=== PATIENT | female | born 1980 | race Caucasian/White ===

== ENCOUNTER 2016-08-31 06:25 | Day surgery (SDC) | payer BC, OTHER ==
[~2016-08-31 06:25] MED LIST: Lactated Ringers 1,000 ML IV SCH; Lidocaine 1%/Sod Bicarbonate in NS 8.4% 1 ML Syringe PRN; Sodium Chloride 0.9% 10 ML Syringe FLUSH PRN
[2016-08-31] MEDS ORDERED: Bupivacaine 0.5% 30 ML SDV ONE (06:34)
[2016-08-31] MEDS: Sodium Chloride 0.9% 1,000 ML IV SCH ×2 (06:45→08:31)
[2016-08-31] MEDS ORDERED: Propofol 200 MG/20 ML SDV ONE ×2 (06:55→06:56)
[2016-08-31] MEDS ORDERED: fentaNYL 250 MCG/5 ML SDV ONE (06:56)
[2016-08-31] MEDS ORDERED: Midazolam 1 MG/ML 2 ML SDV ONE (06:56)
--- NOTE | 2016-08-31 06:58 | PCM.PREANE ---
Preanesthetic Assessment - Procedure Proposed Procedure: D&C, hysteroscopy, diagnostic laparoscopy - Anesthesia/Transfusion/Family Hx Anesthesia History: Prior Anesthesia Without Reaction Family History of Anesthesia Reaction: No Transfusion History: No Prior Transfusion(s) Type of Transfusion Reactions: Reports: Unknown Intubation History: Unknown - Review of Systems General: No Symptoms Pulmonary: No Symptoms Cardiovascular: No Symptoms Gastrointestinal: No symptoms Neurological: No Symptoms Other: Reports: Diabetes (GS 156 at 0644), Anxiety (not medicated ) - Physical Assessment NPO Status Date: 08/30/16 NPO Status Time: 21:00 Pulse: 94 O2 Sat by Pulse Oximetry: 95 Respiratory Rate: 16 Blood Pressure: 104/71 Temperature: 36.8 C Height: 1.57 m Weight: 62.142 kg ASA Class: 2 Mental Status: Alert & Oriented x3 Airway Class: Mallampati = 1 Dentition: Reports: Normal Dentition Thyro-Mental Finger Breadths: 3 ROM/Head Extension: Full Lungs: Clear to auscultation, Normal respiratory effort Cardiovascular: Regular Rate, Regular Rhythm - Lab Values: Laboratory Last Values WBC 10.03 K/mm3 (3.98-10.04) 08/30/16 17:36 RBC 4.60 M/mm3 (3.98-5.22) 08/30/16 17:36 Hgb 14.2 gm/L (11.2-15.7) 08/30/16 17:36 Hct 41.4 % (34.1-44.9) 08/30/16 17:36 MCV 90.0 fl (79.4-94.8) 08/30/16 17:36 MCH 30.9 pg (25.6-32.2) 08/30/16 17:36 MCHC 34.3 g/dl (32.2-35.5) 08/30/16 17:36 RDW Std Deviation 41.2 fL (36.4-46.3) 08/30/16 17:36 Plt Count 225 K/mm3 (182-369) 08/30/16 17:36 MPV 11.5 fl (9.4-12.3) 08/30/16 17:36 Neut % (Auto) 39.2 % (34.0-71.1) 08/30/16 17:36 Lymph % (Auto) 51.6 % (19.3-51.7) 08/30/16 17:36 [place] % (Auto) 7.9 % (4.7-12.5) 08/30/16 17:36 Eos % (Auto) 0.8 (0.7-5.8) 08/30/16 17:36 Baso % (Auto) 0.2 % (0.1-1.2) 08/30/16 17:36 Neut # (Auto) 3.93 K/mm3 (1.56-6.13) 08/30/16 17:36 Lymph # (Auto) 5.18 K/mm3 (1.18-3.74) H 08/30/16 17:36 [place] # (Auto) 0.79 K/mm3 (0.24-0.36) H 08/30/16 17:36 Eos # (Auto) 0.08 K/mm3 (0.04-0.36) 08/30/16 17:36 Baso # (Auto) 0.02 K/mm3 (0.01-0.08) 08/30/16 17:36 Manual Slide Review Abnormal smear 08/30/16 17:36 POC Glucose 156 mg/dL (70-105) H 08/31/16 06:44 HCG, Quant < 1.0 mIU/mL 08/30/16 17:36 - Allergies Allergies/Adverse Reactions: Allergies Allergy/AdvReac Type Severity Reaction Status Date / Time cefdinir [From Omnicef] AdvReac Diarrhea Verified 08/30/16 16:23 naproxen AdvReac Diarrhea/blood Verified 08/30/16 16:23 in stool sulfamethoxazole AdvReac Stomach Verified 08/30/16 16:23 [From Bactrim] Ache trimethoprim [From Bactrim] AdvReac Stomach Verified 08/30/16 16:23 Ache - Blood Blood Available: No Product(s) Available: None - Anesthesia Plan Pre-Op Medication Ordered: None - Acknowledgements Anesthesia Type Planned: General Anesthesia Pt an Appropriate Candidate for the Planned Anesthesia: Yes Alternatives and Risks of Anesthesia Discussed w Pt/Guardian: Yes Pt/Guardian Understands and Agrees with Anesthesia Plan: Yes PreAnesthesia Questionnaire HEENT History: Reports: Impaired Vision Other HEENT History: glasses Cardiovascular History: Reports: None Respiratory History: Reports: Bronchitis, Recurrent Other Gastrointestinal History: colitis Genitourinary History: Reports: 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, , Other (See Below) Other OB/BYN History: ascus, cervical intraepithelial neoplasia, hypermenorrhea , severe dysplagia of cervix, pelvic pain, vaginal irritation Musculoskeletal History: Reports: None Neurological History: Reports: Migraines Psychiatric History: Reports: Anxiety Other Psychiatric History: denies any issues Endocrine/Metabolic History: Reports: Diabetes, Type I, Other (See Below) Hematologic History: Reports: None Immunologic History: Reports: None Oncologic (Cancer) History: Reports: None Dermatologic History: Reports: None - Past Surgical History Head Surgeries/Procedures: Reports: None GI Surgical History: Reports: Appendectomy, Colonoscopy Female Surgical History: Reports: Cervical Conization, Other (See Below) Other Female Surgeries/Procedures: laparoscopy, polypectomy Dermatological Surgical History: Reports: None - SUBSTANCE USE Smoking Status *Q: Current Every Day Smoker (0.5ppd for 12years) Tobacco Use Within Last Twelve Months: Cigarettes Second Hand Smoke Exposure: No Days Per Week of Alcohol Use: 0 Number of Drinks Per Day: 0 Total Drinks Per Week: 0 Recreational Drug Use History: No - HOME MEDS Home Medications: Home Meds Acetaminophen [Tylenol] 650 mg PO Q4H PRN 08/30/16 [History] Insulin Glargine,Hum.Rec.Anlog [Toujeo Solostar] 26 units SQ BEDTIME 08/30/16 [ History] Norethindrone-E.estradiol-Iron [Tori Fe 1.5-30 Tablet] 1 tab PO DAILY 08/30/16 [History] Saxagliptin [Onglyza] 5 mg PO DAILY 08/30/16 [History] - CURRENT (IN HOUSE) MEDS Current Meds: Current Medications Lactated Ringer's (Ringers, Lactated) 1,000 mls @ 125 mls/hr IV ASDIRECTED BLANCA Stop: 08/31/16 23:00 Sodium Chloride (Normal Saline) 1,000 mls @ 125 mls/hr IV ASDIRECTED BLANCA Lidocaine/Sodium Bicarbonate (Buffered Lidocaine 1% In Ns 8.4%) 0.25 ml .XX ONETIME PRN PRN Reason: Prior to IV Start Stop: 08/31/16 18:00 Sodium Chloride (Saline Flush) 10 ml FLUSH ASDIRECTED PRN PRN Reason: Keep Vein Open Stop: 08/31/16 18:00 Discontinued Medications Bupivacaine HCl (Marcaine 0.5%) Confirm Administered Dose 30 ml .ROUTE .STK-MED ONE Stop: 08/31/16 06:35 Fentanyl (Sublimaze) Confirm Administered Dose 250 mcg .ROUTE .STK-MED ONE Stop: 08/31/16 06:57 Lidocaine HCl (Xylocaine-Mpf 1%) Confirm Administered Dose 4 mls @ as directed .ROUTE .STK-MED ONE Stop: 08/31/16 07:03 Midazolam HCl (Versed 1 Mg/Ml) Confirm Administered Dose 2 mg .ROUTE .STK-MED ONE Stop: 08/31/16 06:57 Ondansetron HCl (Zofran) Confirm Administered Dose 4 mg .ROUTE .STK-MED ONE Stop: 08/31/16 07:03 Propofol (Diprivan 20 Ml) Confirm Administered Dose 200 mg .ROUTE .STK-MED ONE Stop: 08/31/16 06:56 Propofol (Diprivan 20 Ml) Confirm Administered Dose 400 mg .ROUTE .STK-MED ONE Stop: 08/31/16 06:57 Rocuronium [place] (Zemuron) Confirm Administered Dose 50 mg .ROUTE .STK-MED ONE Stop: 08/31/16 07:03
[2016-08-31] MEDS ORDERED: Rocuronium 50 MG/5 ML Vial ONE (07:02)
[2016-08-31] MEDS ORDERED: Ondansetron 4 MG/2 ML SDV ONE (07:02)
[2016-08-31] MEDS ORDERED: Lidocaine 1% 4 ML ONE (07:02)
[2016-08-31] MEDS ORDERED: HYDROmorphone 1 MG/ML Syringe ONE (07:58)
[2016-08-31] MEDS ORDERED: ceFAZolin 1 GM Vial ONE (07:58)
[2016-08-31] MEDS ORDERED: Neostigmine Methylsulfate 1 MG/ML 5 ML Syringe ONE (08:05)
--- NOTE | 2016-08-31 08:14 | PCM.POSTAN ---
POST ANESTHESIA ASSESSMENT - MENTAL STATUS Mental Status: alert, oriented - VITAL SIGNS Pulse Rate: 85 SaO2: 97 Resp Rate: 14 Blood Pressure: 116/81 Temperature: 36.8 C - RESPIRATORY Respiratory Status: respiratory rate WNL, airway patent, O2 saturation stable, supplemental oxygen - CARDIOVASCULAR CV Status: pulse rate WNL, blood pressure stable - GASTROINTESTINAL GI Status: no symptoms - PAIN Pain Score: 5 (fentanyl given ) - POST OP HYDRATION Hydration Status: adequate & stable
[2016-08-31] MEDS ORDERED: HYDROmorphone 0.5 MG/0.5 ML Syringe IVPUSH PRN (08:15)
[2016-08-31] MEDS ORDERED: Meperidine PF 50 MG/ML Syringe IVPUSH PRN (08:15)
[2016-08-31] MEDS ORDERED: Ondansetron 4 MG/2 ML SDV IVPUSH PRN (08:15)
[2016-08-31] MEDS ORDERED: fentaNYL 100 MCG/2 ML SDV IVPUSH PRN (08:15)
[2016-08-31] MEDS ORDERED: diphenhydrAMINE 50 MG/ML SDV IVPUSH PRN (08:15)
--- NOTE | 2016-08-31 08:30 | PCM.OPNOTE ---
- General Post-Op/Procedure Note Date of Surgery/Procedure: 08/31/16 Operative Procedure(s): Diagnostic laparoscopy and removal of lesion anterior surface uterus. Dilatation and curettage and hysteroscopy Pre Op Diagnosis: Irregular menses, hypermenorrhea, dysmenorrhea, pelvic pain Post-Op Diagnosis: Same plus small clear "blister" like lesion anterior serosa of the uterus biopsied possible early endometriosis Anesthesia Technique: General ET tube Primary Surgeon: Robinson Burnett Secondary Surgeon: Nitin Yanez Anesthesia Provider: Ton Osorio Fluid Replacement, Intraop: 900 Output, Urine Amount: 30 EBL in mLs: 5 Drain/Tube Comments:: None Complications: None Condition: Good Free Text/Narrative:: Patient was transported to operating room #2 and placed under general anesthesia in the low dorsal lithotomy position and prepared and draped in sterile fashion. Examination under anesthesia revealed anterior uterus no adnexal masses the timeout was performed confirming name date of and procedure as laparoscopy possible removal of a tube and ovary in (no tube or ovary removed) dilatation and curettage and hysteroscopy. SCDs in place and functioning prior surgery Ancef 2 g given intravenously prior surgery the uterine manipulator was placed after sounding the uterus to 8 cm and draped in a sterile fashion injecting 2 mL of 0.25% Marcaine at the umbilicus and midline suprapubic area small 5 mm incision made in both areas and pneumoperitoneum needle introduced and pneumoperitoneum obtained 5 mm trocar then introduced and prompt visualization of the pelvic organs was accomplished there was 1 small "blister" on the anterior surface of the uterus and right side just medial to the round ligament that was biopsied possible endometriosis pathology report pending there was no endometriosis of the cul-de-sac both tubes and ovaries appeared normal patient has had previous appendectomy and examination of the intraperitoneal contents showed no significant abnormalities no ovary abnormality on the left or right side no tubal abnormality identified anterior and posterior cul-de-sac were normal no endometriosis other than the "blister" noted above. The 5 mm trocar and that had been placed suprapubically and the one at the umbilicus removed after pneumoperitoneum reduced and the incision closed with 3-0 Monocryl Dermabond applied. Hernandez catheter removed after completion of the hysteroscopy The uterus again sounded 8 cm dilated carefully to allow passage of the hysteroscope and hysteroscopy was performed normal tubal ostia bilaterally no polyps were seen no intraoperative uterine cavity adhesions curettage was performed of the endometrial cavity as well as endocervical canal all tissue sent to pathology for tissue evaluation Photographs taken #001 shows the uterus and the left ovary and tube image 002 shows right ovary and tube image 003 showed the posterior cul-de-sac image 004 shows area of biopsy just anterior to the round ligament image 005 shows area of previous appendix patient has had appendectomy image 006 shows left tube image 007 shows the right T-tube image 008 shows the superior surface of the uterus and overview of the cul-de-sac image 009 shows a close-up view of the cul -de-sac image 0 10 shows right round ligament image 0 11 shows a right ovary posterior surface image 012 shows the left side with the ureter and vein noted and fallopian tubes Images from the hysteroscopy image 001 shows the area of the right tubal ostium image 002 shows better view of the right tubal ostium image 003 shows the left tubal ostium image 004 shows the interior of the endometrial cavity was suggested possible slight arcuate formation of the endometrial cavity no septums no polyps no adhesions Patient transported postanesthesia care unit in satisfactory condition no blood transfusions were required to talk with the concerning the findings patient will make appointment to see me in 4 weeks in the clinic
[2016-08-31] MEDS ORDERED: Ketorolac 30 MG/ML SDV ONE (08:36)
[2016-08-31] MEDS ORDERED: Acetaminophen/oxyCODONE 325-5 MG Tab PO ONE (08:59)
--- NOTE | 2016-08-31 09:17 | PCM48HPAN ---
Post Anesthesia Note - EVALUATION WITHIN 48HRS OF ANESTHETIC Vital Signs in Normal Range: Yes Patient Participated in Evaluation: Yes Respiratory Function Stable: Yes Airway Patent: Yes Cardiovascular Function Stable: Yes Hydration Status Stable: Yes Pain Control Satisfactory: Yes Nausea and Vomiting Control Satisfactory: Yes Mental Status Recovered: Yes
[2016-08-31 10:09] VITALS: BP 106/75
== END 2016-08-31 10:10 | disposition home or self-care (01) ==
LOC: JD.SDS 06:25
PROVIDERS: ATTEND Obstetrics & Gynecology
PROC: 0UBF4ZX Excision of Cul-de-sac, Percutaneous Endoscopic Approach, Diagnostic (ICD-10-PCS; principal; 2016-08-31)
PROC: 0UDB8ZZ Extraction of Endometrium, Via Natural or Artificial Opening Endoscopic (ICD-10-PCS; 2016-08-31)
DX: N92.6 Irregular menstruation, unspecified (principal); N92.0 Excessive and frequent menstruation with regular cycle; N94.6 Dysmenorrhea, unspecified; F41.9 Anxiety disorder, unspecified; G43.909 Migraine, unspecified, not intractable, without status migrainosus; E10.9 Type 1 diabetes mellitus without complications; F17.210 Nicotine dependence, cigarettes, uncomplicated; Z88.1 Allergy status to other antibiotic agents; Z88.8 Allergy status to other drugs, medicaments and biological substances; Z79.4 Long term (current) use of insulin; Z79.84 Long term (current) use of oral hypoglycemic drugs; Z79.899 Other long term (current) drug therapy; Z90.49 Acquired absence of other specified parts of digestive tract; Z98.890 Other specified postprocedural states; Z87.442 Personal history of urinary calculi
CPT/HCPCS: 36415; 49321; 58558; 82962; 84702; 85025; 88305; A9270; J0690; J1170; J1885; J2250; J2405; J2710; J3010; J7040; 00940; J2704

== ENCOUNTER 2017-05-31 17:46 | Emergency (ER) | payer BC ==
[2017-05-31 18:03] VITALS: BP 112/77
--- NOTE | 2017-05-31 18:36 | EDM.PDOC ---
ED HPI GENERAL MEDICAL PROBLEM - General Chief Complaint: Upper Extremity Injury/Pain Stated Complaint: DISLOCATED SHOULDER Time Seen by Provider: 05/31/17 17:48 Source of Information: Reports: Patient, Family () History Limitations: Reports: No Limitations - History of Present Illness INITIAL COMMENTS - FREE TEXT/NARRATIVE: The patient states that she was sitting with her daughter this past Saturday, 05/26, when her daughter nearly fell. The patient put her left arm backwards to catch her daughter, varying the weight of the 24 pound child. This caused the patient's left arm to be hyperextended backwards, straining the anterior portion of her shoulder. Patient states that she has had pain to her supero- lateral shoulder ever since. The patient has pain at rest, made worse with attempts to abduct or extend the arm. She does not have problems with flexion, internal, or external rotation of the arm. The patient was seen at the [facility] earlier today. 5 view radiographs of the arm is read by the radiologist as "Possible posterior dislocation of the shoulder. Further evaluation with CT is recommended." The patient was then sent to the ED for further evaluation. No prior left shoulder injury. The patient's PCP is Miriam Garrison. Left Shoulder Pain Score (Numeric/FACES): 7 - Related Data Allergies Allergy/AdvReac Type Severity Reaction Status Date / Time cefdinir [From Omnicef] AdvReac Diarrhea Verified 08/30/16 16:23 naproxen AdvReac Diarrhea/blood Verified 08/30/16 16:23 in stool sulfamethoxazole AdvReac Stomach Verified 08/30/16 16:23 [From Bactrim] Ache trimethoprim [From Bactrim] AdvReac Stomach Verified 08/30/16 16:23 Ache Home Meds: Home Meds Acetaminophen [Tylenol] 650 mg PO Q4H PRN 08/30/16 [History] Insulin Glargine,Hum.Rec.Anlog [Ariel Goodman] 26 units SQ BEDTIME 08/30/16 [ History] Norethindrone-E.estradiol-Iron [Tori Fe 1.5-30 Tablet] 1 tab PO DAILY 08/30/16 [History] Ibuprofen [Motrin] 200 - 600 mg PO Q6H #50 tablet 08/31/16 [Rx] Dapagliflozin Propanediol [Farxiga] 5 mg PO DAILY 05/31/17 [History] Past Medical History HEENT History: Reports: Impaired Vision Other HEENT History: glasses Genitourinary History: Reports: Renal 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, , Other (See Below) (HPV, Cervical dysplasia) Neurological History: Reports: Migraines Endocrine/Metabolic History: Reports: Diabetes, Type I, Other (See Below) - Past Surgical History GI Surgical History: Reports: Appendectomy, Colonoscopy Female Surgical History: Reports: Cervical Conization, Other (See Below) ( Exploratory laparoscopy for endometriosis x 5.) Social & Family History - Family History Family Medical History: Noncontributory - Tobacco Use Smoking Status *Q: Current Every Day Smoker Years of Tobacco use: 19 Packs/Tins Daily: 0.5 - Caffeine Use Caffeine Use: Reports: Coffee, Energy Drinks - Alcohol Use Alcohol Use History: Yes Days Per Week of Alcohol Use: 0 Number of Drinks Per Day: 0 Total Drinks Per Week: 0 Alcohol Use Frequency: Rarely - Recreational Drug Use Recreational Drug Use: No - Living Situation & Occupation Living situation: Reports: , with Spouse, with Family (4 kids) Occupation: Employed ([employer]) Review of Systems - Review of Systems Review Of Systems: ROS reveals no pertinent complaints other than HPI. ED EXAM, GENERAL - Physical Exam Exam: See Below Exam Limited By: No Limitations General Appearance: Alert, WD/WN, No Apparent Distress Extremities: Other (No visible abnormality to the left shoulder, when compared to the right, such as swelling, erythema, ecchymosis, abrasion, or deformity. No fullness to the anterior or posterior shoulder. Minimal tenderness to palpation of the shoulder. Pain is induced with PROM with attempts at extension and raising the arm above shoulder height. Pain is also induced in the lateral shoulder with attempts at both abduction and adduction against resistance. Neurovascular status of the left upper extremity is intact.) Course - Vital Signs Last Recorded V/S: Last Vital Signs Temp 36.3 C 05/31/17 18:01 Pulse 100 05/31/17 18:01 Resp 20 05/31/17 18:01 BP 112/77 05/31/17 18:01 Pulse Ox 100 05/31/17 18:01 - Orders/Labs/Meds Orders: Active Orders 24 hr Category Date Time Status Shoulder wo Cont Lt [CT] Stat Exams 05/31/17 18:10 Stop Req - Re-Assessments/Exams Free Text/Narrative Re-Assessment/Exam: 05/31/17 18:25 Clinically, the patient's left shoulder is not dislocated. I suspect that she has torn some anterior tendons/ligaments, allowing some subluxation. Based on the Radiologist's report, I initially ordered a CT scan of the shoulder, but after examining her, I find that the patient would benefit from a MRI, not a CT scan. As Dr. Quiroz is unavailable at this time, I will give the patient a referral to Dr. Ramirez. The patient already has an arm sling. Departure - Departure Time of Disposition: 18:28 Disposition: Home, Self-Care 01 Condition: Fair Clinical Impression: Injury of left shoulder - Discharge Information Referrals: Miriam Garrison NP [Primary Care Provider] - Andrea Ramirez MD [Physician] - Deandre Quiroz MD [Physician] - Additional Instructions: You were seen in the emergency room after injuring your left shoulder on 2017. Based on your physical examination, your left shoulder is not dislocated, however, you have likely torn some of the supporting tendons/ligaments, which allows your shoulder to slide around (sublux). You may wear the shoulder sling to support your arm, however, it is important that you get in at least some movement to your shoulder daily, to prevent the development of a frozen shoulder. This can be done by: 1. Have your move your left arm around as much as you can tolerate while you completely relax your shoulder muscles 2. Lean forward, allowing your left arm to hang freely, then get it swinging in a jamul by moving your body 3. Place your left hand on a wall and "crawl" up the wall with your hand Follow-up with the Orthopedic Surgeon in [place], Dr. Quiroz, OR the shoulder surgeon in [place], Dr. Andrea Ramirez, at the next available appointment. Take [id number] Tylenol or ibuprofen as needed for discomfort. If any other problems, please do not hesitate to return to the ER. - My Orders Last 24 Hours: My Active Orders 05/31/17 18:10 Shoulder wo Cont Lt [CT] Stat - Assessment/Plan Last 24 Hours: My Active Orders 05/31/17 18:10 Shoulder wo Cont Lt [CT] Stat
== END 2017-05-31 18:40 | disposition home or self-care (01) ==
LOC: JD.ED 17:46 → SUPCPDRO 17:46 → JD.ED 18:40
DX: S49.92XA Unspecified injury of left shoulder and upper arm, initial encounter (principal); F17.210 Nicotine dependence, cigarettes, uncomplicated; Z79.899 Other long term (current) drug therapy; Z88.8 Allergy status to other drugs, medicaments and biological substances; Z79.4 Long term (current) use of insulin; Z87.442 Personal history of urinary calculi; X50.1XXA Overexertion from prolonged static or awkward postures, initial encounter; E10.9 Type 1 diabetes mellitus without complications
CPT/HCPCS: 99283

== ENCOUNTER 2019-10-21 06:40 | Day surgery (SDC) | payer OTHER ==
[~2019-10-21 06:40] MED LIST changes: +Lidocaine 1%/Sod Bicarbonate in NS 8.4% 1 ML Syringe IDERM PRN; -Lidocaine 1%/Sod Bicarbonate in NS 8.4% 1 ML Syringe PRN
[2019-10-21] MEDS ORDERED: Scopolamine 1.5 MG Transdermal Patch TOP SCH (07:00)
--- NOTE | 2019-10-21 07:06 | PCM.OPNOTE ---
- General Post-Op/Procedure Note Date of Surgery/Procedure: 10/21/19 Operative Procedure(s): Laparoscopic assisted vaginal hysterectomy. Bilateral salpingectomy Findings: Intraabdominal findings of normal uterus, fallopian tubes, and ovaries. Small paratubal cysts noted. No overt findings of endometriosis Pre Op Diagnosis: Pelvic pain. Hx of endometriosis Post-Op Diagnosis: Same Anesthesia Technique: General ET Tube Primary Surgeon: Roxy Dooley Secondary Surgeon: Sathya May Anesthesia Provider: Marva Chung Reason Environmental Engineer Was Necessary: Speed, safety of procedure Pathology: Cervix, uterus, and fallopian tubes sent to pathology Fluid Replacement, Intraop: 1,600 Output, Urine Amount: 200 EBL in mLs: 100 Complications: None Condition: Good Free Text/Narrative:: The risks, benefits, indications, potential complications, and alternatives were explained to the patient and informed consent obtained. The patient was taken to the Operating Room where general anesthesia was induced without complication. The patient was placed in dorsal lithotomy with Rosendo Stirrups. The patient was then prepped and draped in the usual sterile fashion. A sterile bivalve speculum was placed into the vagina and the anterior lip of the cervix was grasped with a single tooth tenaculum and a [employer] uterine manipulator was placed to allow uterine manipulation throughout the procedure. The speculum and single tooth tenaculum were removed from the vagina. A Hernandez catheter was placed in sterile fashion. Attention was then turned to the patients abdomen where a Veress needle was carefully introduced into the peritoneal cavity while tenting the abdominal wall. Intraperitoneal placement was confirmed by free flow of saline into the abdomen from a syringe open to gravity and with a low intraabdominal pressure with insufflation of C02 gas on low flow. The gas was increased to high flow and a pneumoperitoneum was obtained with C02 gas to a pressure of 15 mm Hg. A 5 mm skin incision was made in a vertical fashion in the umbilical fold and a 5 mm blunt trocar was inserted into the abdomen with direct visualization of the laparoscope through the clear view trocar lens. 5 mm skin incisions were made in both the left and right lower quadrants approximately 10 cm lateral and 3 cm inferior to the umbilicus. 5 mm blunt trocars were inserted into the abdomen under direct visualization with care to avoid the abdominal wall vasculature. A blunt probe and grasper were inserted through the accessory ports and a survey of the abdomen revealed the findings detailed above. The right fallopian tube was elevated with the blunt graspers at the fimbriated end. The LigaSure was used to grasp, elevate, cauterize and transect the mesosalpingx from the fimbriated end toward the uterus to the level of the round ligament. The fallopian tube was amputated at the cornua and then removed from the 5 mm port. The round ligament on the right was then elevated, cauterized, and transected with the LigaSure. Hemostasis was noted. Next, the vesicouterine peritoneum was elevated gently with a grasper and the LigaSure and blunt d issection were used dissect the vesicouterine peritoneum to make a bladder flap. Two more small bites along the right side of the uterus were made with the LigaSure to skeletonize the uterine artery. Hemostasis was noted. The exact same procedure was carried out on the left. The CO2 gas was turned off and the laparoscope was removed. Attention was then turned to the vaginal portion of the procedure. A short weighted speculum was placed in the vagina, and the cervix was grasped with a single toothed tenaculum. The cervix was injected circumferentially with 10 mL of 1% lidocaine with dilute epinephrine. The cervix was then circumferentially incised with a scalpel. A Raytec was used to bluntly dissect the cervix circumferentially until an avascular plane was obtained. The posterior cul-de-s ac was entered sharply without difficulty. A 0-Vicryl pop-off suture was placed at six o'clock to include the posterior vaginal mucosa and posterior peritoneum. This stitch was tagged with a straight clamp to help with vaginal cuff closure at the end of the case. The short weighted speculum was replaced by the long weighted speculum. The uterosacral ligaments were grasped on either side with the LigaSure, cauterized, and transected. Hemostasis was assured. The bladder was dissected off the pubovesical cervical fascia anteriorly with a sponge and blunt dissection. The anterior cul-de-sac was then entered sharply without difficulty. The cardinal ligaments were then serially clamped on both sides with the LigaSure, cauterized, and transected. The uterine arteries were then clamped with the LigaSure, cauterized, and transected. Hemostasis was then noted. The fundus and adnexa were confirmed to be free of any further peritoneal attachments and then were pulled out through the vagina. The posterior peritoneum was closed with a running locked 0 Vicryl suture. The vaginal cuff was closed with two separate 0-Vicryl sutures in a running locked fashion starting at either apex and run towards one other at the midline. Attention was then again turned to the abdomen. All members of the surgical team changed gloves. The laparoscope was again inserted and the abdomen was again insufflated with CO2. The pedicles were again visualized. Hemostasis was confirmed. The patient was taken out of Trendelenberg position. The accessory trocars were removed under direct visualization. The pneumoperitoneum was allowed to escape. The umbilical trocar was removed and lastly the camera was removed from the abdomen under direct visualization to confirm no herniation into the port site. All skin incisions were re-approximated with 4-0 Monocryl and sealed with Dermabond. Hemostasis was noted. A total of 10 cc of 0.25% Marcaine was injected into the subcutaneous tissues surrounding the skin in cisions for local anesthesia. All sponge, lap, needle, and instrument counts were correct x 2. The patient tolerated the procedure well and there were no complications. Hernandez removed at the end of the case
--- NOTE | 2019-10-21 07:27 | PCM.PREANE ---
Preanesthetic Assessment - Procedure Proposed Procedure: Laparoscopic assisted vaginal hysterectomy - Anesthesia/Transfusion/Family Hx Anesthesia History: Prior Anesthesia Without Reaction Family History of Anesthesia Reaction: No Transfusion History: No Prior Transfusion(s) Type of Transfusion Reactions: Reports: Unknown Intubation History: Unknown - Review of Systems General: No Symptoms Pulmonary: No Symptoms Cardiovascular: No Symptoms Gastrointestinal: No Symptoms Neurological: Headache (history of migraines, no SAMANIEGO currently ) Other: Reports: Depression - Physical Assessment NPO Status Date: 10/21/19 NPO Status Time: 21:30 Height: 1.57 m ASA Class: 3 Mental Status: Alert & Oriented x3 Airway Class: Mallampati = 1 Dentition: Reports: Normal Dentition Thyro-Mental Finger Breadths: 3 Mouth Opening Finger Breadths: 5 ROM/Head Extension: Full Lungs: Clear to Auscultation, Normal Respiratory Effort Cardiovascular: Regular Rate, Regular Rhythm - Allergies Allergies/Adverse Reactions: Allergies Allergy/AdvReac Type Severity Reaction Status Date / Time [id number] Reductase Allergy Muscle Verified 10/20/19 14:33 Inhibitor Aches cefdinir [From Omnicef] AdvReac Diarrhea Verified 10/20/19 14:33 naproxen AdvReac Diarrhea/blood Verified 10/20/19 14:33 in stool sulfamethoxazole AdvReac Stomach Verified 10/20/19 14:33 [From Bactrim] Ache trimethoprim [From Bactrim] AdvReac Stomach Verified 10/20/19 14:33 Ache - Blood Blood Available: No - Anesthesia Plan Pre-Op Medication Ordered: Other (scopalamine ) - Acknowledgements Anesthesia Type Planned: General Anesthesia Pt an Appropriate Candidate for the Planned Anesthesia: Yes Alternatives and Risks of Anesthesia Discussed w Pt/Guardian: Yes Pt/Guardian Understands and Agrees with Anesthesia Plan: Yes PreAnesthesia Questionnaire HEENT History: Reports: Impaired Vision Other HEENT History: glasses Cardiovascular History: Reports: None Respiratory History: Reports: Bronchitis, Recurrent Other Gastrointestinal History: colitis Genitourinary History: Reports: Renal Calculus [employer] History: Reports: Endometriosis, , Other (See Below) Other OB/BYN History: ascus, cervical intraepithelial neoplasia, hypermenorrhea, severe dysplagia of cervix, pelvic pain, vaginal irritation Musculoskeletal History: Reports: None Neurological History: Reports: Migraines Psychiatric History: Reports: Anxiety, Depression Other Psychiatric History: denies any issues Endocrine/Metabolic History: Reports: Diabetes, Type I, Other (See Below) Hematologic History: Reports: None Immunologic History: Reports: None Oncologic (Cancer) History: Reports: None Dermatologic History: Reports: None - Infectious Disease History Infectious Disease History: Reports: None - Past Surgical History Head Surgeries/Procedures: Reports: None HEENT Surgical History: Reports: None Respiratory Surgical History: Reports: None GI Surgical History: Reports: Appendectomy, Colonoscopy Female Surgical History: Reports: Cervical Conization, Other (See Below) Other Female Surgeries/Procedures: laparoscopy, polypectomy Endocrine Surgical History: Reports: None Neurological Surgical History: Reports: None Oncologic Surgical History: Reports: None Dermatological Surgical History: Reports: None - SUBSTANCE USE Smoking Status *Q: Current Every Day Smoker Recreational Drug Use History: No - HOME MEDS Home Medications: Home Meds Aspirin/Acetaminophen/Caffeine [Excedrin Migraine Caplet] 2 tab PO Q6H PRN 10/20/19 [History] Clobetasol [Clobetasol Propionate 0.05% Cream] 1 dose TOP BID PRN 10/20/19 [History] Elagolix Sodium [Orilissa] 150 mg PO DAILY 10/20/19 [History] Emollient Combination No.40 [Cetaphil] 1 dose TOP BID PRN 10/20/19 [History] Insulin Aspart [NovoLOG] 3 - 11 units SQ TID PRN 10/20/19 [History] Insulin Degludec [Tresiba] 24 units SQ BEDTIME 10/20/19 [History] Multivitamin [Daily Gildardo] 1 tab PO DAILY 10/20/19 [History] levonorgestreL [Mirena] 1 each VAG ASDIRECTED PRN 10/20/19 [History] - CURRENT (IN HOUSE) MEDS Current Meds: Current Medications Lactated Ringer's (Ringers, Lactated) 1,000 mls @ 125 mls/hr IV ASDIRECTED BLANCA Stop: 10/21/19 23:00 Lidocaine/Sodium Bicarbonate (Buffered Lidocaine 1% In Ns 8.4%) 0.25 ml IDERM ONETIME PRN PRN Reason: Prior to IV Start Stop: 10/21/19 18:00 Scopolamine (Transderm-Scop) 1.5 mg TOP ONETIME BLANCA Stop: 10/21/19 13:00 Sodium Chloride (Saline Flush) 10 ml FLUSH ASDIRECTED PRN PRN Reason: Keep Vein Open Stop: 10/21/19 18:00
[2019-10-21] MEDS ORDERED: fentaNYL 100 MCG/2 ML SDV IVPUSH PRN (07:32)
[2019-10-21] MEDS ORDERED: HYDROmorphone 0.5 MG/0.5 ML Syringe IVPUSH PRN (07:32)
[2019-10-21] MEDS ORDERED: Ondansetron 4 MG/2 ML SDV IVPUSH PRN (07:32)
[2019-10-21] MEDS ORDERED: diphenhydrAMINE 50 MG/ML SDV IVPUSH PRN (07:32)
[2019-10-21] MEDS ORDERED: Lidocaine 1% with EPINEPHrine 1:100,000 20 ML MDV ONE (07:33)
[2019-10-21] MEDS ORDERED: Lidocaine 1% 4 ML ONE (07:37)
[2019-10-21] MEDS ORDERED: Propofol 200 MG/20 ML SDV ONE ×2 (07:37→07:48)
[2019-10-21] MEDS ORDERED: fentaNYL 100 MCG/2 ML SDV ONE ×2 (07:37→09:33)
[2019-10-21] MEDS ORDERED: Midazolam 1 MG/ML 2 ML SDV ONE (07:37)
[2019-10-21] MEDS ORDERED: Ondansetron 4 MG/2 ML SDV ONE ×2 (07:48→10:01)
[2019-10-21] MEDS ORDERED: Dexamethasone 4 MG/ML 5 ML MDV ONE (07:48)
[2019-10-21] MEDS ORDERED: ceFAZolin 1 GM Vial ONE ×2 (08:07)
[2019-10-21] MEDS ORDERED: HYDROmorphone 0.5 MG/0.5 ML Syringe ONE ×2 (08:27→09:08)
[2019-10-21] MEDS: Bupivacaine 0.5% 30 ML SDV ONE ×2 (08:31→08:39)
[2019-10-21] MEDS ORDERED: Ketamine 500 mg/10 ML MDV ONE (08:40)
[2019-10-21] MEDS ORDERED: Lactated Ringers 1,000 ML ONE (08:52)
[2019-10-21] MEDS ORDERED: Ketorolac 30 MG/ML SDV ONE (08:53)
[2019-10-21] MEDS ORDERED: Rocuronium 50 MG/5 ML Vial ONE (09:00)
[2019-10-21] MEDS ORDERED: Promethazine 6.25 MG in Sodium Chloride 0.9% 50 ML IV ONE ×2 (09:58→10:15)
--- NOTE | 2019-10-21 10:02 | PCM.POSTAN ---
POST ANESTHESIA ASSESSMENT - MENTAL STATUS Mental Status: Oriented - VITAL SIGNS Vital Signs: 0951 100/48, 95 o2, hr 89, Rr 17, 97.3 Last Vital Signs Temp 36.3 C 10/21/19 07:00 Pulse 97 10/21/19 07:00 Resp 20 10/21/19 07:00 BP 115/72 10/21/19 07:00 Pulse Ox 96 10/21/19 07:00 - RESPIRATORY Respiratory Status: Respiratory Rate WNL, Airway Patent, O2 Saturation Stable - CARDIOVASCULAR CV Status: Pulse Rate WNL, Blood Pressure Stable - GASTROINTESTINAL GI Status: No Symptoms - PAIN Pain Score: 0 - POST OP HYDRATION Hydration Status: Adequate & Stable
[2019-10-21] MEDS ORDERED: Acetaminophen/oxyCODONE 325-5 MG Tab PO PRN (11:11)
--- NOTE | 2019-10-21 11:58 | PCM48HPAN ---
Post Anesthesia Note - EVALUATION WITHIN 48HRS OF ANESTHETIC Vital Signs in Normal Range: Yes Patient Participated in Evaluation: Yes Respiratory Function Stable: Yes Airway Patent: Yes Cardiovascular Function Stable: Yes Hydration Status Stable: Yes Pain Control Satisfactory: Yes Nausea and Vomiting Control Satisfactory: Yes Mental Status Recovered: Yes Vital Signs: Last Vital Signs Temp 36.9 C 10/21/19 11:35 Pulse 62 10/21/19 11:35 Resp 16 10/21/19 11:35 BP 114/49 L 10/21/19 11:35 Pulse Ox 96 10/21/19 11:35
[2019-10-21 12:41] VITALS: BP 117/66; PULSE 77
== END 2019-10-21 12:38 | disposition home or self-care (01) ==
LOC: JD.SDS 06:40
PROVIDERS: ATTEND Obstetrics & Gynecology
DX: N83.8 Other noninflammatory disorders of ovary, fallopian tube and broad ligament (principal); N85.8 Other specified noninflammatory disorders of uterus; E11.9 Type 2 diabetes mellitus without complications; F17.210 Nicotine dependence, cigarettes, uncomplicated; Z88.8 Allergy status to other drugs, medicaments and biological substances; Z79.899 Other long term (current) drug therapy; Z79.82 Long term (current) use of aspirin
CPT/HCPCS: 36415; 80048; 81025; 85025; 86850; 86900; 86901; A9270-GY; J0690; J1100; J1170; J1885; J2001; J2250; J2370; J2405; J2704; J2710; J3010; J3490; J7120

== ENCOUNTER 2024-12-05 13:23 | Emergency (ER) | payer BC, OTHER ==
[2024-12-05 13:45] VITALS: BP 143/71; PULSE 103
[2024-12-05] MEDS ORDERED: Sodium Chloride 0.9% 10 ML Syringe FLUSH PRN (13:59)
[2024-12-05 14:29] LABS: BASOPHILS ABSOLUTE AUTO 0.0 K/mm3 (0.0-0.2); BASOPHILS PERCENT AUTO 0.4 % (0.0-1.0); EOSINOPHILS ABSOLUTE AUTO 0.1 K/mm3 (0.0-0.4); EOSINOPHILS PERCENT AUTO 0.8 % (0.0-6.0); IMMATURE GRAN ABSOLUTE AUTO 0.02 K/mm3 (0.00-0.05); IMMATURE GRAN PERCENT AUTO 0.3 % (0.0-0.4); LYMPHOCYTES ABSOLUTE AUTO 2.8 K/mm3 (1.0-4.8); LYMPHOCYTES PERCENT AUTO 36.0 % (24.0-44.0); MEAN PLATELET VOLUME 12.3 fl (9.4-12.3); MONOCYTES ABSOLUTE AUTO 0.4 K/mm3 (0.0-0.8); MONOCYTES PERCENT AUTO 5.5 % (0.0-8.0); NEUTROPHILS ABSOLUTE AUTO 4.5 K/mm3 (1.8-7.7); NEUTROPHILS PERCENT AUTO 57.0 % (41.0-71.0); NRBC ABSOLUTE 0.00 (0.00-0.02); NRBC PERCENT 0.0 % (0.0-0.2); PLATELET COUNT,PLT 203 K/mm3 (150-400); RED BLOOD CELL COUNT 4.25 M/mm3 (4.10-5.30); WHITE BLOOD CELL COUNT,WBC 7.81 K/mm3 (3.9-11.3)
[2024-12-05 14:39] LABS: A/G RATIO 1.1 (1-2); ALANINE AMINOTRANSFERASE,ALT 21.0 U/L (14-59); ASPARTATE AMNIOTRANSFERASE,AST 11.0 U/L (15-37); BILIRUBIN TOTAL 0.3 mg/dL (0.2-1.0); BLOOD UREA NITROGEN,BUN 6.0 mg/dL (7-18); CARBON DIOXIDE,CO2 27.0 mEq/L (21-32); CHLORIDE,CL 105.0 mEq/L (98-107); CREATININE 0.7 mg/dL (0.55-1.02); EST CRCL DRUG DOSING (CG) 82.8 mL/min; ESTIMATED GFR 111.0 mL/min (>60); GLUCOSE RANDOM 244.0 mg/dL (70-99); POTASSIUM,K 4.1 mEq/L (3.5-5.1); PROTEIN TOTAL,TP 6.6 g/dl (6.4-8.2); SODIUM,NA 141.0 mEq/L (136-145)
[2024-12-05] MEDS: Iopamidol 755 Mg/ML 100 ML Bottle IVPUSH ONE (14:44)
[2024-12-05] MEDS: Alum Hydrox/Mag Hydrox/Simeth 30 ML, Lidocaine 2% 15 ML PO ONE (15:13)
== END 2024-12-05 17:30 | disposition home or self-care (01) ==
LOC: JD.ED 13:23
DX: R07.9 Chest pain, unspecified (principal); E10.65 Type 1 diabetes mellitus with hyperglycemia; Z88.2 Allergy status to sulfonamides; Z88.8 Allergy status to other drugs, medicaments and biological substances; Z79.82 Long term (current) use of aspirin; Z79.4 Long term (current) use of insulin; Z79.899 Other long term (current) drug therapy; Z90.49 Acquired absence of other specified parts of digestive tract
CPT/HCPCS: 36415; 71275; 80053; 82947; 83690; 84484; 84703; 85025; 93005; 96360; 99285; A9270; J3490; J7030; Q9967; 93010; 99284